=== PATIENT | female | born 1960 ===

== ENCOUNTER 2018-12-05 12:42 | Emergency (ER) | payer OTHER ==
[~2018-12-05] VITALS: Ht 160 cm; Wt 79.8 kg
[2018-12-05] MEDS ORDERED: FORTAMET1000 MG (12:58)
== END 2018-12-05 16:09 | disposition home or self-care (01) ==
LOC: ER 12:42
DX: I87.2 Venous insufficiency (chronic) (peripheral) (principal); M79.605 Pain in left leg